=== PATIENT | female | born 1985 | race Caucasian/White ===

== ENCOUNTER 2023-11-17 16:48 | Outpatient (CLI) | payer OTHER, SELFPAY ==
--- NOTE | 2023-11-17 17:00 | CRLHL7_ITS ---
For Patients: As a result of the Cures Act, medical imaging exams and procedure reports are released immediately into your electronic medical record. You may view this report before your referring provider. If you have questions, please contact your health care provider. INDICATION: First trimester scan, establish dates. COMPARISON: None. TECHNIQUE: Real-time nation-scale imaging of the pelvis was performed. FINDINGS: Sonographic imaging demonstrates a single living intrauterine gestation. The embryo demonstrates a regular cardiac rate measuring 180 beats per minute. The embryo`s crown-rump length measurement of 2.4 cm corresponds to a gestational age of 9 weeks 1 day with a sonographic due date of 06/20/2024. There is a normal-appearing yolk sac. There are no gross abnormalities noted within the embryo at this early state of development. The gestational sac has a normal appearance. There is a 4 x 8 x 4 millimeter perigestational hemorrhage. The amount of fluid within the sac appears appropriate for gestational age. The cervix is closed. The myometrium appears normal. The ovaries are not visualized. There are no suspicious fluid collections noted in the cul-de-sac. IMPRESSION: Single living intrauterine with sonographic gestational age 9 weeks 1 day and sonographic due date of 06/20/2024. Small subchorionic hemorrhage measuring 4 x 8 x 4 millimeters. Dictated by Bonifacio Ruano MD @ 11/18/2023 12:07:18 PM (Electronically Signed)
== END 2023-11-17 16:49 | disposition home or self-care (01) ==
LOC: US 16:48
PROVIDERS: Visit Provider Physician Assistant
DX: Z34.91 Encounter for supervision of normal pregnancy, unspecified, first trimester (principal); Z3A.09 9 weeks gestation of pregnancy
CPT/HCPCS: 76817; 86592; 86703; 86704; 86706; 86762; 86787; 86803; 86850; 86900; 86901; 87086; 87340; 87491; 87591

== ENCOUNTER 2023-12-18 10:25 | Emergency (ER) | payer OTHER, SELFPAY ==
[2023-12-18 10:33] VITALS: BP 124/81; PULSE 74; RESP 18; TEMP 36.4; O2SAT 99; BMI 27.8
--- NOTE | 2023-12-18 10:45 | ED.PREGNANCY ---
HPI - General Time Seen by Provider: 10:46 Date Seen: 12/18/23 Chief complaint: Vaginal Bleeding Stated complaint: 13 weeks , bleeding Time Seen by Provider: 12/18/23 10:45 Source: patient, RN notes reviewed and old records reviewed Mode of arrival: ambulatory Limitations: no limitations History of Present Illness HPI Narrative: This 38-year-old female was at work this morning when she went to get up out of her chair and felt a gush of blood. She is currently 13 weeks with an LMP of 09/15/2023. Her estimated due date is 06/21/2024 by LMP. Ultrasound did confirm that time estimate. She had the initial gush of blood, has had a little bleeding since then but is not had to change a pad. She has had no fevers chills, has no abdominal pain. When she called the triage line, they did tell her her initial ultrasound showed a subchorionic hemorrhage. She states she just had her 1st OB appointment last week. She has had 2 other pregnancies without complication per report. She had a transvaginal ultrasound on 11/17/2023 which showed a single living intrauterine with estimated gestational age 9 weeks 1 day with a sonographic due date of 06/20/2024. There was a small subchorionic hemorrhage measuring 4 x 8 x 4 mm. Patient does state that they did hear heart with doppler at office visit last week. Blood type is A positive. Related Data Home Medications ?Medication ?Instructions ?Recorded ?Confirmed [id number] 3-fat com #1 27 cap PO 11/17/23 12/15/23 mg-1 mg-300 mg capsule Allergies Allergy/AdvReac Type Severity Reaction Status Date / Time No Known Drug Allergies Allergy Verified 12/15/23 15:27 Review of Systems Status of ROS: Reports: 6 or more systems reviewed and unremarkable except as noted in History and below PFSH PFSH Social History Narrative: Occupation: Patient works in [employer]. Marital status: . Spiritism/cultural needs: no. Chemical or radiation exposure: no. Pre- tobacco use: no. Pre- alcohol use: Occasional. Current tobacco use: no. Current alcohol use: no. Recreational drug use: no. Dietary restrictions: no. Blood transfusion acceptable in an emergency: yes. PSYCHOSOCIAL HISTORY: History of depression or currently depressed: no. Current or physical, emotional, or sexual mistreatment: no. Problems that will make it hard to make it to appointments: no. What is your current living situation?: I presently have a place to live Problems where you live: no known problems In the past 12 months, utilities in danger of being shut off: no In past 12 months, lack of transportation kept you from medical appts, meetings, work, or getting things needed for daily living: no In the past 12 mos, have been you worried that your food would run out before you had money to buy more?: never true In the past 12 mos, the food you bought just didn't last and you didn't have money to buy more?: never true Smoking Status: Never smoker How often do you have a drink containing alcohol: never AUDIT-C Alcohol total score: 0 Non-prescribed substance use: denies use How often does anyone, including family, friends and others, physically hurt you: never How often does anyone, including family, friends and others, insult or talk down to you: never How often does anyone, including family, friends and others, threaten you with harm: never How often does anyone, including family, friends and others, scream or curse at you: never Little interest or pleasure in doing things: not at all Feeling down, depressed, or hopeless: several days Exam Const: Vital Signs, click to edit/add: Vital Signs - 24 hr 12/18/23 10:33 12/18/23 11:19 Temperature 97.5 F L 97.8 F Pulse Rate [Pulse Oximeter] 74 68 Respiratory Rate 18 18 Blood Pressure [Ri ght Upper Arm] 124/81 115/77 Pulse Oximetry 99 99 Oxygen Delivery Me thod Room Air Room Air This 38-year-old female is alert, interactive, no apparent distress but mildly tearful, anxious. Sclera clear, speech is normal. Lungs are clear, good air entry, no wheezing or crackles. CV regular rate and rhythm, no murmur, normal S1-S2. Abdomen is soft, nontender, nondistended. Did look with ultrasound, can see movement, can see cardiac activity that appears to be normal. Documenting provider has reviewed patient's vital signs: yes Course Course ED Course: Patient is not actively bleeding at this time. We will get a formal ultrasound. She is reassured that we can see cardiac activity and that the baby looks good on ultrasound. We need to identify the source of bleeding, could be subchorionic hemorrhage. We will get the ultrasound, CBC, monitor her here. She is aware that I will talk to Ob once I have everything back or if needed before that. Reevaluation(s) Time of Reevaluation #1: 12:50 Reevaluation #1: Patient agrees to speculum exam. There is just a little dark blood externally but nothing abnormal with underlying tissues. See dark blood overlying the vaginal mucosa but again no mucosal changes otherwise. Cervix has purplish discoloration with but no abnormal lesions noted. There is a little dark blood pooling in the posterior cul-de-sac by the cervix. Do not see any active extravasation of blood through the cervix. Cervix looks closed. Consultations Consultation #1: Reviewed case with Dr. Dominguez from OB. She agrees with speculum exam but doesn't think other testing is necessary. She was aware of this patient from triage in OB this am, just wanted to make sure that she was not having a miscarriage. She wonders if she could have evacuated the subchorionic hemorrhage. She recommends that with increased bleeding or significant cramping developing, return for further evaluation. Otherwise we have reviewed discharge to home with relative rest. Time: 12:40 Vital Signs Vital signs: Initial Vital Signs Temperature 97.5 F L 12/18/23 10:33 Temperature Source Temporal Artery Scan 12/18/23 10:33 Pulse Rate 74 12/18/23 10:33 Respiratory Rate 18 12/18/23 10:33 Blood Pressure 124/81 12/18/23 10:33 Blood Pressure Mean 95 12/18/23 10:33 Blood Pressure Position Sitting 12/18/23 10:33 Pulse Oximetry 99 12/18/23 10:33 Oxygen Delivery Method Room Air 12/18/23 10:33 Vital Signs Temperature 97.5 F L 12/18/23 10:33 Pulse Rate 74 12/18/23 10:33 Respiratory Rate 18 12/18/23 10:33 Blood Pressure 124/81 12/18/23 10:33 Pulse Oximetry 99 12/18/23 10:33 Oxygen Delivery Method Room Air 12/18/23 10:33 Temperature 97.8 F 12/18/23 11:19 Pulse Rate 68 12/18/23 11:19 Respiratory Rate 18 12/18/23 11:19 Blood Pressure 115/77 12/18/23 11:19 Pulse Oximetry 99 12/18/23 11:19 Oxygen Delivery Method Room Air 12/18/23 11:19 MDM - OB/Uterine Contractions Lab Data Attestation: I reviewed the patient's lab results. Labs: Lab Results 12/18/23 Range/Units 11:00 WBC 8.30 (4.50-11.00) K/uL RBC 4.37 (4.00-5.20) m/uL Hgb 11.9 L (12.0-16.0) gm/dL Hct 35.8 (33.0-51.0) % MCV 82 (80-100) fL MCH 27 (26-34) pg MCHC 33 (32-36) gm/dL RDW Coeff of Doreen 13.1 (11.5-15.5) % Plt Count 310 (140-440) K/uL Neut % (Auto) 65.6 (42.0-72.0) % Lymph % (Auto) 24.3 (20-44) % [place] % (Auto) 5.9 (0.0-11.0) % Eos % (Auto) 3.7 (0.0-7.0) % Baso % (Auto) 0.4 (0.0-3.0) % Neut # (Auto) 5.44 (1.7-7.0) K/uL Lymph # (Auto) 2.02 (0.90-2.90) K/uL [place] # (Auto) 0.50 (0.00-0.90) K/UL Eos # (Auto) 0.31 (0.00-0.50) K/uL Baso # (Auto) 0.03 (0.00-0.30) K/uL Abs Immat Gran (auto) 0.01 (0.00-0.30) K/uL Imm/Tot Granulo (auto) 0.1 % Imaging Data OB: Attestation: I have reviewed the pertinent imaging results. Radiologist's impression: Patient: NICOLE PINZON Facility:[facility] Patient ID:?[id number] Site Patient ID:?[id number]. Site :?[id number] Study:?US-OB Pelvis OB LIMITED-12/18/2023 12:16:58 PM Ordering Physician:Easton Rodriguez Final Report: INDICATION: Bleeding COMPARISON: OB ultrasound on 11/18/2023. TECHNIQUE: Limited obstetric ultrasound, 1st trimester, transabdominal approach, utilizing grayscale and color Doppler. FINDINGS: Sonographic imaging demonstrates a single living intrauterine gestation. The fetus has a regular cardiac rate of 149 beats per minute. The placenta lies anterior without evidence of placenta previa. Amniotic fluid volume appears normal. The cervix is not visualized on this exam. The composite ultrasound gestational age is calculated at 14 weeks and 1 day with an estimated sonographic due date of 06/16/2024. The estimated weight is 84 grams which lies at the 61st percentile. The following biometric measurements were obtained: Biparietal diameter: 2.6 cm, 14 weeks and 3 days Head circumference: 9.6 cm, 14 weeks and 3 days Abdominal circumference: 8.2 cm, 14 weeks and 4 days Femur length: 1.0 cm, 13 weeks and 0 days The HC/AC ratio measures: 1.18 IMPRESSION: 1. Single living intrauterine with heart rate of 149 beats per minute without evidence of complication. 2. Ultrasound gestational age 14 weeks and 1 day with sonographic due date 06/16/2024. Dictated by Cristi Forbes MD @ 12/18/2023 12:24:05 PM (Electronic Signature) Discharge Plan Discharge Clinical Impression: Vaginal bleeding during Patient Disposition: Home, Self-Care Condition: Stable Instructions: Subchorionic Hemorrhage (ED) Additional Instructions: It is possible that the subchorionic hemorrhage evacuated. We do not see any other identifiable cause for bleeding at this time. The baby looks well and has good cardiac activity on ultrasound, this certainly is reassuring. Would recommend relative rest, nothing in the vagina until further advised by OB. Do recommend recheck in clinic next week with Ob. In the meantime, if you have increase in your bleeding, developed cramping, do recommend re-evaluation here in the ER. Note provided to be out of work the next couple of days. Prescriptions: No Action [id number]-[id number]-TL-omega 3-fat com #1 27-1-300 mg capsule PO Follow Up/Referrals: Provider,Not a Local [Non-Staff] - Stand Alone Forms: CLIPPATE Info Instructions
--- NOTE | 2023-12-18 10:52 | CRLHL7_ITS ---
For Patients: As a result of the Century Cures Act, medical imaging exams and procedure reports are released immediately into your electronic medical record. You may view this report before your referring provider. If you have questions, please contact your health care provider. INDICATION: Bleeding COMPARISON: OB ultrasound on 11/18/2023. TECHNIQUE: Limited obstetric ultrasound, 1st trimester, transabdominal approach, utilizing grayscale and color Doppler. FINDINGS: Sonographic imaging demonstrates a single living intrauterine gestation. The fetus has a regular cardiac rate of 149 beats per minute. The placenta lies anterior without evidence of placenta previa. Amniotic fluid volume appears normal. The cervix is not visualized on this exam. The composite ultrasound gestational age is calculated at 14 weeks and 1 day with an estimated sonographic due date of 06/16/2024. The estimated weight is 84 grams which lies at the 61st percentile. The following biometric measurements were obtained: Biparietal diameter: 2.6 cm, 14 weeks and 3 days Head circumference: 9.6 cm, 14 weeks and 3 days Abdominal circumference: 8.2 cm, 14 weeks and 4 days Femur length: 1.0 cm, 13 weeks and 0 days The HC/AC ratio measures: 1.18 IMPRESSION: 1. Single living intrauterine with heart rate of 149 beats per minute without evidence of complication. 2. Ultrasound gestational age 14 weeks and 1 day with sonographic due date 06/16/2024. Dictated by Cristi Forbes MD @ 12/18/2023 12:24:05 PM (Electronically Signed)
[2023-12-18 11:07] LABS: Basophils Absolute Auto 0.03 K/uL (0.00-0.30); Basophils Percent Auto 0.4 % (0.0-3.0); Eosinophils Absolute Auto 0.31 K/uL (0.00-0.50); Eosinophils Percent Auto 3.7 % (0.0-7.0); Hematocrit 35.8 % (33.0-51.0); Hemoglobin* 11.9 gm/dL (12.0-16.0); Immature Granulocytes Abs Auto 0.01 K/uL (0.00-0.30); Immature Granulocytes Pct Auto 0.1 %; Lymphocytes Absolute Auto 2.02 K/uL (0.90-2.90); Lymphocytes Percent Auto 24.3 % (20-44); Mean Corpuscular HGB Conc 33 gm/dL (32-36); Mean Corpuscular Hemoglobin 27 pg (26-34); Mean Corpuscular Volume 82 fL (80-100); Monocytes Percent Auto 5.9 % (0.0-11.0); Neutrophils Absolute Auto 5.44 K/uL (1.7-7.0); Neutrophils Percent Auto 65.6 % (42.0-72.0); Platelet Count* 310 K/uL (140-440); RDW Coefficient of Variation % 13.1 % (11.5-15.5); Red Blood Count 4.37 m/uL (4.00-5.20)
[2023-12-18 11:09] LABS: Slide Review Reflex No
[2023-12-18 11:19] VITALS: BP 115/77; PULSE 68; RESP 18; TEMP 36.6; O2SAT 99
== END 2023-12-18 13:06 | disposition home or self-care (01) ==
PROVIDERS: Emergency Provider Family Medicine; PCP Family Medicine
DX: O46.8X1 Other antepartum hemorrhage, first trimester (principal); Z3A.13 13 weeks gestation of pregnancy
CPT/HCPCS: 36415; 76815; 85025; 99283; 99284

== ENCOUNTER 2024-01-28 13:14 | Outpatient (CLI) | payer OTHER, SELFPAY | END 2024-01-28 13:15 | disposition home or self-care (01) | LOC: US 13:14 | PROVIDERS: PCP Family Medicine; Visit Provider Obstetrics & Gynecology | DX: O09.522 Supervision of elderly multigravida, second trimester (principal); Z3A.19 19 weeks gestation of pregnancy | CPT/HCPCS: 76811 ==

== ENCOUNTER 2024-03-30 14:46 | Outpatient (CLI) | payer BC, SELFPAY | END 2024-03-30 14:47 | disposition home or self-care (01) | LOC: NFLDREF 04-03 04:09 | PROVIDERS: PCP Family Medicine; Referring Provider Family Medicine; Visit Provider Obstetrics & Gynecology | DX: Z34.93 Encounter for supervision of normal pregnancy, unspecified, third trimester (principal); Z3A.28 28 weeks gestation of pregnancy | CPT/HCPCS: 86592 ==

== ENCOUNTER 2024-04-07 14:42 | Outpatient (CLI) | payer BC, SELFPAY | END 2024-04-07 14:43 | disposition home or self-care (01) | LOC: NFLDREF 04-08 23:23 | PROVIDERS: PCP Family Medicine; Referring Provider Family Medicine; Visit Provider Obstetrics & Gynecology | DX: O99.013 Anemia complicating pregnancy, third trimester (principal); Z3A.28 28 weeks gestation of pregnancy | CPT/HCPCS: 82728 ==

== ENCOUNTER 2024-04-27 14:00 | Outpatient (RCR) | payer BC, SELFPAY ==
--- NOTE | 2024-04-13 09:47 | ONC.NURNOTE ---
Diagnosis: iron deficiency anemia in
[2024-04-13 12:42] VITALS: BP 108/69; PULSE 85; RESP 16; TEMP 36.2; O2SAT 98
[2024-04-13 14:12] VITALS: BP 114/74; PULSE 87; RESP 16; O2SAT 100
--- NOTE | 2024-04-13 14:47 | URNOTE ---
Request received for authorization for Venofer ([id number]) 200mg, total of 5 visits. Prior authorization is approved per [facility] on behalf of [facility] [place] Ref#[id number], date range: 04/08/2024 to 10/05/2024.
[2024-04-15 13:53] VITALS: BP 117/76; PULSE 83; RESP 16; TEMP 36.6; O2SAT 97
[2024-04-15 14:35] VITALS: BP 114/77; PULSE 84; RESP 16; TEMP 36.5; O2SAT 97
[2024-04-15] MEDS: SODIUM CHLORIDE 0.9 % (FLUSH) 10 ML SYRINGE IVF (14:55)
[2024-04-15 15:11] VITALS: BP 109/72; PULSE 81; RESP 16; TEMP 36.5; O2SAT 97
[2024-04-20 14:02] VITALS: BP 98/67; PULSE 84; RESP 16; TEMP 36.2; O2SAT 97
[2024-04-20] MEDS: SODIUM CHLORIDE 0.9 % (FLUSH) 10 ML SYRINGE IVF (14:37)
[2024-04-20 14:55] VITALS: BP 104/69; PULSE 80; RESP 16; TEMP 36.6; O2SAT 98
[2024-04-20 15:28] VITALS: BP 107/70; PULSE 80; RESP 16; TEMP 36.2; O2SAT 95
--- NOTE | 2024-04-20 15:51 | ONC.NURNOTE ---
Pt here for #3 Iron sucrose. BP slightly lower than normal 98/67, recheck 97/68. HR 84. Pt denies dizziness or lightheadedness. Material Attendant called and spoke to Zena in Women's health triage, per Zena, since pt is asymptomatic and has good movement there is no concern at this time. Pt states she has good movement. Tolerated Iron infusion, BP improved with infusion.
[2024-04-22 13:58] VITALS: BP 103/70; PULSE 86; RESP 16; TEMP 36.7; O2SAT 98
[2024-04-22] MEDS: SODIUM CHLORIDE 0.9 % (FLUSH) 10 ML SYRINGE IVF (14:24)
[2024-04-22 14:45] VITALS: BP 113/74; PULSE 84
[2024-04-22 15:17] VITALS: BP 114/73; PULSE 78; O2SAT 97
[2024-04-27 14:00] VITALS: BP 107/69; PULSE 87; RESP 16; TEMP 36.7; O2SAT 98
[2024-04-27] MEDS: SODIUM CHLORIDE 0.9 % (FLUSH) 10 ML SYRINGE IVF (14:26)
[2024-04-27 14:45] VITALS: BP 119/79; PULSE 85; RESP 16; TEMP 36.3; O2SAT 98
[2024-04-27 15:18] VITALS: BP 111/76; PULSE 79; RESP 16; TEMP 36.4; O2SAT 98
== END 2024-10-10 23:59 | disposition home or self-care (01) ==
LOC: CCIC 14:00
PROVIDERS: PCP Family Medicine; Referring Provider Family Medicine; Visit Provider Clinical Nurse Specialist
DX: O99.013 Anemia complicating pregnancy, third trimester (principal); D50.9 Iron deficiency anemia, unspecified
CPT/HCPCS: 96365; 96374; J1756; J7050

== ENCOUNTER 2024-05-24 15:17 | Outpatient (CLI) | payer BC, SELFPAY ==
[2024-05-25 22:46] LABS: Strep B DNA Probe Negative (Negative)
[2024-05-25 23:36] LABS: Strep B Susceptibility Needed? No
== END 2024-05-24 15:18 | disposition home or self-care (01) ==
LOC: NFLDREF 15:18
PROVIDERS: PCP Family Medicine; Visit Provider Obstetrics & Gynecology
DX: Z34.83 Encounter for supervision of other normal pregnancy, third trimester (principal)
CPT/HCPCS: 87081; 87653

== ENCOUNTER 2024-06-12 13:34 | Outpatient (CLI) | payer BC, SELFPAY ==
[2024-06-12 13:42] VITALS: PULSE 82; RESP 16; TEMP 36.5; O2SAT 98
[2024-06-12 13:58] VITALS: BP 124/73; PULSE 80
--- NOTE | 2024-06-12 16:35 | PC.OBNST ---
NST Note NST Note Start: 06/12/24 13:39 Freq: ONCE Status: Active Protocol: Document 06/12/24 16:34 BAW (Rec: 06/12/24 16:35 BAW No Response) NST Note 3 Para (# of births) 2 EDC 06/21/24 Gestational Age In Weeks & Days 38 Weeks & 5 Days High Risk Factors Advanced Maternal Age Patient Presented with Complaint(s) of Contractions/cramping Reactive Yes Appropriate for Gestational Age Yes CECILIA Au RNC Date 06/12/24 Reactive Yes Appropriate for Gestational Age Yes CECILIA Dixon RN Date 06/12/24 OB NST charge Yes Complete NST Note via Write Note Yes The provider's electronic signature indicates the NST is reactive/appropriate for gestational age. *Note to provider: If an addendum is required, open the patient's chart and click on the note under the Nurse/Allied Health tab.
== END 2024-06-12 16:28 | disposition home or self-care (01) ==
LOC: OB OUT 13:34 → OB 13:37
PROVIDERS: PCP Family Medicine; Visit Provider Obstetrics & Gynecology
DX: O47.1 False labor at or after 37 completed weeks of gestation (principal); Z3A.38 38 weeks gestation of pregnancy
CPT/HCPCS: 59025; G0463

== ENCOUNTER 2024-06-12 23:35 | Inpatient (IN) | payer BC, SELFPAY ==
[2024-06-12 23:45] LABS: Basophils Percent Auto 0.1 % (0.0-3.0); Eosinophils Percent Auto 3.5 % (0.0-7.0); Hemoglobin* 12.6 gm/dL (12.0-16.0); Immature Granulocytes Pct Auto 0.5 %; Lymphocytes Percent Auto 17.7 % (20-44); Mean Corpuscular HGB Conc 33 gm/dL (32-36); Mean Corpuscular Hemoglobin 27 pg (26-34); Mean Corpuscular Volume 81 fL (80-100); Monocytes Percent Auto 6.6 % (0.0-11.0); Neutrophils Percent Auto 71.6 % (42.0-72.0); Platelet Count* 268 K/uL (140-440); RDW Coefficient of Variation % 16.2 % (11.5-15.5); White Blood Count* 15.27 K/uL (4.50-11.00)
[2024-06-12 23:49] VITALS: BP 123/77; PULSE 79
[2024-06-12 23:49] LABS: Slide Review Reflex No
[2024-06-12 23:50] VITALS: PULSE 78; O2SAT 100
[2024-06-12 23:52] VITALS: TEMP 36.7
[2024-06-12] MEDS: LACTATED RINGERS 1000 ML 1,000 ML 900 ML IV (23:54)
[2024-06-13] VITALS (35 sets, daily range): BP systolic 87–131; BP diastolic 50–84; PULSE 74–96; RESP 16–18; TEMP 36.2–36.9; O2SAT 96–100; BMI 33.1
[2024-06-13] MEDS: ROPIVACAINE 0.2% 100 ml 100 ML 12 MG EPIDURAL (00:25)
[2024-06-13] MEDS: BUPIVACAINE 0.25% PF 10 ML 10 ML ML EPIDURAL (00:25)
--- NOTE | 2024-06-13 00:33 | PM.ANBPRC ---
[facility] Family History (Updated 06/02/24 @ 13:57 by Corazon Ardon MD) Other High blood pressure Social History Narrative: Lives in [place] with and 2 kids, 11 and 7. Occupation: Patient works in [employer]. Marital status: . Presybeterian/cultural needs: no. Chemical or radiation exposure: no. Pre- tobacco use: no. Pre- alcohol use: Occasional. Current tobacco use: no. Current alcohol use: no. Recreational drug use: no. Dietary restrictions: no. Blood transfusion acceptable in an emergency: yes. PSYCHOSOCIAL HISTORY: History of depression or currently depressed: no. Current or physical, emotional, or sexual mistreatment: no. Problems that will make it hard to make it to appointments: no. What is your current living situation?: I presently have a place to live Problems where you live: no known problems In the past 12 months, utilities in danger of being shut off: no In past 12 months, lack of transportation kept you from medical appts, meetings, work, or getting things needed for daily living: no In the past 12 mos, have been you worried that your food would run out before you had money to buy more?: never true In the past 12 mos, the food you bought just didn't last and you didn't have money to buy more?: never true Smoking Status: Never smoker How often do you have a drink containing alcohol: never AUDIT-C Alcohol total score: 0 Non-prescribed substance use: denies use How often does anyone, including family, friends and others, physically hurt you: never How often does anyone, including family, friends and others, insult or talk down to you: never How often does anyone, including family, friends and others, threaten you with harm: never How often does anyone, including family, friends and others, scream or curse at you: never Meds Home Medications and Allergies Home Medications ?Medication ?Instructions ?Recorded ?Confirmed ?Type FNB-[id number]-FY-omega 3-fat com #1 27 1 cap PO DAILY 11/17/23 06/12/24 History mg-1 mg-300 mg capsule Allergies Allergy/AdvReac Type Severity Reaction Status Date / Time No Known Drug Allergies Allergy Verified 06/12/24 23:47 Results Labs Labs: Laboratory Results - last 24 hr 06/12/24 23:40 WBC 15.27 H RBC 4.70 Hgb 12.6 Hct 38.0 MCV 81 MCH 27 MCHC 33 RDW Coeff of Doreen 16.2 H Plt Count 268 Neut % (Auto) 71.6 Lymph % (Auto) 17.7 L [place] % (Auto) 6.6 Eos % (Auto) 3.5 Baso % (Auto) 0.1 Neut # (Auto) 10.90 H Lymph # (Auto) 2.70 [place] # (Auto) 1.00 H Eos # (Auto) 0.50 Baso # (Auto) 0.00 Abs Immat Gran (auto) 0.10 Imm/Tot Granulo (auto) 0.5 Vital Signs Vital Signs: Last Vital Signs Temp 98.0 F 06/12/24 23:52 Pulse 81 06/13/24 00:32 BP 115/64 06/13/24 00:32 Pulse Ox 100 06/13/24 00:27 Anesthesia Procedures Epidural Insertion Patient Location: OB Start Time: 00:01 Stop Time: 00:33 Start Date: 06/13/24 Stop Date: 06/13/24 Reason for Block: procedure for pain Patient Position: sitting Performed By: Harsha Singh Preanesthetic Checklist: IV checked, risks and benefits discussed, monitors and equipment checked, pre-op evaluation, timeout performed and anesthesia consent Prep: chlorhexidine gluconate Monitoring: blood pressure monitoring, continuous pulse oximetry and heart rate Approach: midline Vertebral Space: lumbar (1-5) Epidural Technique: JOSE saline Needle Type: Tuohy needle Injection Technique: continuous catheter Needle gauge: 17 Needle Length (cm): 10 cm Needle Insertion Depth (cm): 6 Catheter Gauge: 19 Catheter Type: multi-orifice Catheter at skin depth (cm): 12 Test Dose Result: negative and lidocaine 1.5% with epinephrine 1 to 200,000
[2024-06-13] MEDS: LACTATED RINGERS 1000 ML 1,000 ML 900 ML IV (01:10)
[2024-06-13] MEDS: PHENYLEPHRINE 100 MCG/ML SYRINGE IVP (02:53)
[2024-06-13] MEDS: OXYTOCIN 30 unit/500 ML in NS 30 UNIT/500 ML BAG 300 UNIT IVPB (03:05)
--- NOTE | 2024-06-13 03:23 | W.PM.VAGDEL1 ---
Procedure Delivery date: 06/13/24 Procedure Done: Global Narrative: The patient is a 38 year-old G 3 P 2001 admitted on 06/12/24 at 38 and 5/7 weeks gestation for spontaneous onset of labor. GBS negative Labor Analgesia: Epidural Pitocin: Only for active 3rd stage management AROM: 06/13/24 at 0220, with clear fluid Labor onset: 06/12/24 at 2100 Complete: 06/13/24 at 0207 Pushin06/13/24 at 0221 heart tones during second stage were II. After 1st two pushes, station moved from 0 to +2 rapidly. At that time, deceleration down to the 90s noted for 4 minutes with recovery after lateral repositioning. There were intermittent variable and late decelerations during pushing that spontaneously resolved with cessation of contractions/pushing. Moderate variability throughout the course and accelerations noted as well. At 0303 a viable female infant delivered in vertex compound presentation (OA with left hand to face) over intact via spontaneous vaginal delivery. The infant's body was delivered in the usual manner without difficulty. The was placed on maternal abdomen. The cord was clamped and cut after a 30-60 second delay. The nose and mouth were bulb suctioned. weight: pending. 8 at 1 minute and 8 at 5 minutes. Shoulder dystocia: No. Nuchal cord: No Placenta delivered spontaneously and complete at 0307 with a 3-vessel cord. Placenta examined and noted to be complete. Placenta was not sent to pathology. The cervix and vagina were inspected for lacerations, and 1st degree perineal was noted. Laceration(s): 1st degree perineal, repaired with 2-0 vicryl in a continuous fashion Complications: none Quantitative blood loss: 50 cc Cord gases: not indicated Sponge and needles counts are correct. Mother and were stable at the time of this note.
--- NOTE | 2024-06-13 03:25 | W.PM.LDBA ---
Subjective History of Present Illness Time Seen by Provider: 11:00 Date Seen: 06/12/24 Narrative: Patient is being admitted to Labor and Delivery for labor. She is a 38 year old at weeks gestation. Her full history and physical was dictated by Dr. Ardon on 06/02. Please see this for details. Patient was in triage earlier in the day with cervical dilation at 3.5 cm. She returned with cervical dilation at 6.5 cm and jeff painfully. Specific Issues/Plans Partner: David Baby girl: Dominique ??? H&P: 06/02 # AMA Declined genetic screening [x] Level 2 ultrasound: ordered on 01/11 with MFM consult # varicella and rubella nonimmune Vaccinate Imaging: - Level 2 US: No anatomic anomalies seen. EFW 280g at 41%ile, AC 57%ile. Cervix long/closed. MVP 6.89cm. Anterior placenta. Vaccinations: COVID: Declined Flu: Declined Tdap: 04/26/24 32 week mental health: PHQ9 of 2, GAD7 of 1 Last pap: 06/06/22 OB - Problem Based A/P Additional Plan (1) AMA (advanced maternal age) multigravida 35+: Status: Acute (2) Spontaneous onset of labor: Status: Acute Plan - Patient in active spontaneous labor. - Requesting epidural - Expectant labor management OB Exam Physical Exam Vital signs: Temp Pulse BP Pulse Ox 98.0 F 91 121/58 L 100 06/12/24 23:52 06/13/24 03:21 06/13/24 03:21 06/13/24 00:27 Narrative: Physical exam: General: No acute distress Psych: Alert and oriented x3, full affect HEENT: Normocephalic, atraumatic Lungs: Unlabored breathing Neuro: No focal deficit. Mentating appropriately Pelvic exam: 6.5/100/0 per RN
--- NOTE | 2024-06-13 12:38 | PM.ANPOST ---
Post Anesthesia Note Post Anesthesia Note Patient seen: Inpatient Respiratory Status: adequate Cardiovascular Status: adequate Mental Status: baseline Pain: adequate Temp: baseline Anesthetic awareness: N/A Complications: none Follow care: none
[2024-06-13] MEDS: IBUPROFEN 600 MG TABLET PO (17:06)
[2024-06-14 01:16] VITALS: BP 116/79; PULSE 77; RESP 16; TEMP 36.5; O2SAT 97
--- NOTE | 2024-06-14 07:59 | P.DS_ITS ---
DS: Providers Provider Date Seen: 06/14/24 Date of admission: 06/12/24 23:35 Primary care physician: Donnie Romo MD Admitting Clinician: Padmini Mckenna MD Attending Physician on discharge: Eduarda Ba CNM Date of Discharge: 06/14/24 DS: Diagnosis Discharge Diagnosis (1) care and examination immediately after delivery: Status: Acute (2) Lactating mother: Status: Acute Exam Narrative: Exam Narrative: GENERAL APPEARANCE:? normal affect, alert, no distress MOOD:? appropriate CHEST:? clear to auscultation HEART:? regular rate and rhythm ABDOMEN:? soft, non-tender the uterine fundus is firm At Umbilicus, Midline and is appropriate for the stage of recovery. PERINEUM:? mild edema of the perineum, there is a Perineal Laceration,? 1st degree that is healing well. EXTREMITIES:? normal and trace edema Const: Vital Signs, click to edit/add: Vital Signs - 24 hr 06/13/24 12:31 06/13/24 17:03 06/13/24 21:00 Temperature 97.2 F L 98.4 F 97.8 F Pulse Rate [Pulse Oximeter] 78 84 74 Respiratory Rate 16 18 16 Blood Pressure [Le ft Arm] 123/81 124/84 113/77 Pulse Oximetry 96 99 96 Oxygen Delivery Me thod Room Air Room Air Room Air 06/14/24 01:16 Temperature 97.7 F Pulse Rate [Pulse Oximeter] 77 Respiratory Rate 16 Blood Pressure [Le ft Arm] 116/79 Pulse Oximetry 97 Oxygen Delivery Me thod Room Air Documenting provider has reviewed patient's vital signs: yes OB - DS: Summary Hospital Course Hospital Course: Savita is a 38 y.o. who was admitted to [facility] for labor.? She had an uncomplicated NVD.? ?? The patient feels well.? The pain is well controlled with current medications.? She has no new complaints.? She is pumping and bottling and reports she has not pumped much milk yet. She is considering switching to formula if needed.? the patient has done well.? Vitals have been stable.? She has remained afebrile.? Has a good appetite, is tolerating a general diet.? She is voiding without difficulty.? She is passing gas and has not had a bowel movement.? She is ambulating and denies any dizziness.? Has Small amount of rubra lochia.?They are planning vasectomy for control. Peripartum Data Infant delivery method: Vaginal Laceration description: Vaginal - 1st Degree complications: none Infant Gender: Female Infant Discharge Plan: Home Status at Discharge Functional status at discharge: independent ambulation Overall status at discharge: patient is progressing back to baseline Time Spent with Patient Time attestation: Total time spent providing and/or coordinating discharge services: Time spent: Less than 30 minutes Discharge Plan Discharge Disposition: Home, Self-Care Date of Admission: 06/12/24 23:35 Attending Provider on Discharge: Eduarda Ba Primary Care Provider: Donnie Romo Condition: Stable Anticipated Discharge Date/Time: 06/14/24 12:00 Discharge Medications: New acetaminophen 500 mg Tablet 1,000 mg PO Q6H PRNQty: 0 0RF docusate sodium 100 mg Capsule 100 mg PO DAILY Qty: 90 1RF ibuprofen 600 mg Tablet 600 mg PO Q6H PRNQty: 60 0RF Continued [id number] 3-fat com #1 27-1-300 mg capsule 1 cap PO DAILY Discharge Orders: Discharge Order (Routine); Ordered 06/14/24 Ordered By: Eduarda Ba Patient Education: OB Over the Counter Medication Information, OB Vaginal/Breast Feeding Additional Instructions: Discharge instructions were reviewed with the patient including signs and symptoms of infection and home going medications Nothing vaginally for 6 weeks: no tampons or intercourse Off Work or School for 6 weeks 2-week visit: discuss infant feeding concerns, review control options and screen for anxiety/depression. 6-week visit for an annual exam. consultation services are available to all mothers and babies for the first year after delivery.? To make an appointment, please call [phone]. Activity Level: Activity as Tolerated Discharge Diet: Regular Follow Up Appointments: [facility] [Provider Group] Forms: [employer] Info Instructions
[2024-06-14 08:23] VITALS: BP 108/72; PULSE 85; RESP 14; TEMP 36.9; O2SAT 96
[2024-06-14] MEDS: MEASLES,MUMPS,RUBELLA VACC/PF 1 DOSE INJ 1 EACH SUBCUT (08:29)
[2024-06-14] MEDS: IBUPROFEN 600 MG TABLET PO (08:32)
[2024-06-16 02:18] LABS: Rapid Plasma Reagin (RPR) Non Reactive (Non Reactive)
== END 2024-06-14 10:00 | disposition home or self-care (01) | DRG 560 ==
LOC: OB OUT 23:47 → OB 23:47
PROVIDERS: Admitting Provider Obstetrics & Gynecology; PCP Family Medicine; Visit Provider Obstetrics & Gynecology
DX: O76 Abnormality in fetal heart rate and rhythm complicating labor and delivery (principal); O70.0 First degree perineal laceration during delivery; Z28.39 Other underimmunization status; Z3A.38 38 weeks gestation of pregnancy; Z37.0 Single live birth
CPT/HCPCS: 01967; 36415; 84112; 85018; 85025; 86592; 86850; 86900; 86901; G0463; A9270; J0665; J2795; J7120